=== PATIENT | female | born 1930 | race Caucasian/White ===

== ENCOUNTER 2017-05-11 15:37 | Emergency (ER) | payer OTHER, MEDICARE ==
[~2017-05-11] VITALS: Ht 144.8 cm; Wt 52.2 kg
[2017-05-11] MEDS ORDERED: DIPH-TET-PERTUS Vaccine 0.5 ML VIAL (ADACEL) I.M. ONE (17:45)
[2017-05-11] MEDS ORDERED: BACITRACIN 1 GM OINT TP ONE (17:45)
[2017-05-11 17:50] VITALS: BP_SYST 153
== END 2017-05-11 17:50 | disposition home or self-care (01) ==
LOC: SED 15:37
DX: S20.219A Contusion of unspecified front wall of thorax, initial encounter (principal); S60.511A Abrasion of right hand, initial encounter; E78.5 Hyperlipidemia, unspecified; Z91.018 Allergy to other foods; V47.5XXA Car driver injured in collision with fixed or stationary object in traffic accident, initial encounter; Y93.89 Activity, other specified; Y92.488 Other paved roadways as the place of occurrence of the external cause; Y99.8 Other external cause status
CPT/HCPCS: 71045; 90715; 93005; 99284

== ENCOUNTER 2018-12-06 08:40 | Inpatient (IN) | payer OTHER, MEDICARE ==
[~2018-12-06] VITALS: Ht 147.3 cm; Wt 48.5 kg
[2018-12-06 08:44] VITALS: BP_SYST 160
--- NOTE | 2018-12-06 08:52 | NUR ---
Placed in room 6 . Placed on awake overnight monitor, blood pressure machine and pulse oximeter. To gown for exam. Side rails up. Report received from paramedics.
--- NOTE | 2018-12-06 08:53 | NUR ---
pt arrived with BLS from home with c/o intermittent left hip and leg pain for one week. Pt reprots that she has pain upon rest as well. No other complaints at the moment.
--- NOTE | 2018-12-06 08:58 | NUR ---
ER at bedside examining patient.
[2018-12-06] MEDS ORDERED: KETOROLAC TROMETHAMINE 15 MG VIAL IVP ONE (09:00)
--- NOTE | 2018-12-06 09:10 | NUR ---
# 20 gauge angiocath placed to RAC. Use of asceptic technique. Opsite placed over site. Blood return noted. Blood for lab drawn from site. Flushed with 10 cc of normal saline. No evidence of infiltration noted. Patient tolerated well.
[2018-12-06 09:15] LABS: BASOPHILS % (AUTO) 0.6 % (0.0-2.0); EOSINOPHILS # (AUTO) 0.2 K/uL (0.0-0.4); EOSINOPHILS % (AUTO) 4.4 % (0.0-4.0); HEMATOCRIT 41.4 % (36-48); HEMOGLOBIN 14.2 g/dL (12.0-16.0); LYMPHOCYTES # (AUTO) 2.4 K/uL (1.0-5.5); LYMPHOCYTES % (AUTO) 45.4 % (20.5-51.5); MEAN CORPUSCULAR HEMOGLOBIN 32 pg (27-31); MEAN CORPUSCULAR HGB CONC 34 % (32-36); MEAN CORPUSCULAR VOLUME 93 fL (79.0-98.0); MONOCYTES # (AUTO) 0.5 K/uL (0.0-1.0); MONOCYTES % (AUTO) 8.9 % (1.7-9.3); NEUTROPHILS # (AUTO) 2.2 K/uL (1.8-7.7); NEUTROPHILS % (AUTO) 40.7 % (40.0-70.0); PLATELET COUNT (AUTO) 181 K/uL (130-430); RED BLOOD CELL COUNT(AUTO) 4.44 MIL/uL (4.2-6.2); RED CELL DISTRIBUTION WIDTH 13.2 % (9.0-15.0); WHITE BLOOD COUNT (AUTO) 5.3 K/uL (4.8-10.8)
--- NOTE | 2018-12-06 09:15 | NUR ---
medicated the pt with Toradol for left hip and leg pain. Will reassess.
[2018-12-06] MEDS ORDERED: fentaNYL CITRATE/PF 100 MCG/2 ML AMP IVP ONE (09:30)
--- NOTE | 2018-12-06 09:46 | NUR ---
medicated the pt with Fentanyl for 10/10 left hip and leg pain. Will reassess.
[2018-12-06 10:18] LABS: ANION GAP 5 (5-15); CALCIUM 9.3 mg/dL (8.4-11.0); CHLORIDE 103 mmol/L (98-107); CREATININE 0.78 mg/dL (0.55-1.30); GLUCOSE 108 mg/dL (70-99); POTASSIUM 3.6 mmol/L (3.5-5.1); SODIUM SERUM 137 mmol/L (136-145); UREA NITROGEN, BLOOD 13 mg/dL (8-21)
[2018-12-06 10:22] LABS: ALANINE AMINOTRANSFERASE 19 U/L (12-78); ALBUMIN 3.9 g/dL (3.4-4.8); ASPARTATE AMINOTRANSFERASE 28 U/L (10-37); TOTAL BILIRUBIN 0.5 mg/dL (0.0-1.0)
--- NOTE | 2018-12-06 10:55 | NUR ---
Pt does not recall the names of the medications that she takes. Daughter to bring in list of home medcations.
--- NOTE | 2018-12-06 11:33 | NUR ---
Pt will be admitted to [facility] room 105-A under the care of Dr. Schmidt. Currently waiting to give report.
--- NOTE | 2018-12-06 11:39 | NUR ---
report given to Blanquita MARIN.
[2018-12-06 11:58] VITALS: BP_SYST 150
--- NOTE | 2018-12-06 12:00 | NUR ---
NOTE Pt arrived to floor via gurney from ED. Pt was assisted to bed from [facility] with 2 3 person assist. Pt was in a lot of discomfort during transfer at 1140am. Once pt got into bed, left hip/leg pain diminished. Pt's son and daughter at bedside assisting with admission assessment. Pt has IV in right wrist 20g' at this time which is saline locked. No SOB/resp distress noted at this time. Pt and her family oriented to nursing routines and procedures. Questions/concerns were answered at this time. Call light within reach at this time.
[2018-12-06] MEDS ORDERED: fentaNYL CITRATE/PF 100 MCG/2 ML AMP IVP PRN (12:15)
[2018-12-06] MEDS ORDERED: ACETAMINOPHEN 325 MG TABLET PO PRN (12:15)
[2018-12-06] MEDS: fentaNYL CITRATE/PF 100 MCG/2 ML AMP IVP PRN ×3 (13:40→22:21)
--- NOTE | 2018-12-06 14:00 | NUR ---
NOTE Pt was given 50 mcg of Fentanyl IVP for MRI of lumbar spine at 1340. Pt could not lie flat on the table, was still in severe pain, pt came back to floor at 1400. Pt's son and daughter in law were at bedside. Pt resting in bed. No needs noted at this time. Call light within reach.
[2018-12-06] MEDS ORDERED: ROSU10TA PO (15:32)
[2018-12-06] MEDS ORDERED: LISI-209 PO (15:33)
[2018-12-06] MEDS ORDERED: ASA81 PO (15:33)
[2018-12-06 16:00] VITALS: BP_SYST 135
--- NOTE | 2018-12-06 17:50 | NUR ---
Note Pt sitting up in bed eating her dinner. Pt's son and daughter in law left bedside at 1600 and went home. Pt denies any SOB/resp distress or severe left hip/leg pain at this time. Pt was checked on q1' and PRN all shift for needs and care. Pt next to nurses' station for close observation all shift. Call light within reach.
--- NOTE | 2018-12-06 19:30 | NUR ---
Initial Notes Received handoff report from offgoing nurse at the bedside. Patient is AAOx4, resting comfortably in bedside. IV site intact, dressing clean and dry, saline locked. Bed is locked, in the lowest position, 2x side rails up, bed alarm is on. Call light is within reach. Encouraged patient to call for assistance. Will continue with plan of care.
[2018-12-06 20:00] VITALS: BP_SYST 141
--- NOTE | 2018-12-06 21:00 | NUR ---
Patient attempted to ambulate, got out of bed independently without assistance, but is unable to stand due to severe pain to the left hip. Assisted patient promptly back into bed. Educated patient to not attempt walking due to the severity of the left hip pain. Patient verbalized understanding. Provided patient with a bed steele and patient was able to void urine. Assisted with perineal care. Patient is now clean and dry, resting comfortably in bed. Bed is locked, in the lowest position, 2x side rails up, bed alarm is on. Call light is within reach. Encouraged patient to call for assistance.
--- NOTE | 2018-12-06 22:21 | NUR ---
Patient is complaining of left hip pain, 9/10, sharp. Provided Fentanyl 50mcg per MD order for severe pain, see eMAR for details. Will continue to monitor pain management.
--- NOTE | 2018-12-07 00:21 | NUR ---
Assisted patient to use the bedpan. Patient voided urine, and provided perineal care. Now clean and dry, resting comfortably in bed. Patient is complaining of left thigh and hip pain. Provided patient with some ice packs for the pain. Will continue to monitor for pain management.
[2018-12-07] MEDS: fentaNYL CITRATE/PF 100 MCG/2 ML AMP IVP PRN ×4 (02:26→11:57)
--- NOTE | 2018-12-07 02:26 | NUR ---
Patient is complaining of sharp 10/10 thigh pain. Provided Fentanyl PRN per MD order, see eMAR for details. Also applied new ice packs to the thigh. Will continue to monitor pain management.
[2018-12-07 02:41] VITALS: BP_SYST 142
--- NOTE | 2018-12-07 04:30 | NUR ---
Patient complaining of left thigh pain after using the bedpan. Provided patient with ice packs as needed. Will continue to monitor pain management.
--- NOTE | 2018-12-07 05:28 | NUR ---
Patient complaining of sharp pain on the left thigh 10/10. Provided patient with pain medication PRN per MD order, see eMAR for details.
--- NOTE | 2018-12-07 06:15 | NUR ---
Closing Notes Patient is resting comfortably in bed, AAOx4. No SOB, no acute distress, no complaints of pain at this time. IV site is intact, dressing clean and dry, saline locked. Bed is locked, in the lowest position, 2x side rails up, bed alarm is on. Call light is within reach. Fall and safety precautions maintained. All needs have been met during this shift. Will endorse care to oncoming dayshift nurse.
--- NOTE | 2018-12-07 07:25 | NUR ---
OPENING NOTE Patient resting in the bed. No acute distress. AAO x 4. Stated the pain is coming back after went to bathroom. Skin warm and dry to touch. SL intact to right wrist, no redness, no swelling, patent. Discussed the safety issue, use call light when needs help, and plan of care, verbally understanding. Safety measure maintained. Call light within reached. Bed locked in low position, side rails up, bed alarm on. Will continue to monitor.
[2018-12-07 07:50] VITALS: BP_SYST 152
--- NOTE | 2018-12-07 08:46 | NUR ---
FENTANYL GIVEN Patient c/o left hip pain 10/10, Fentanyl 50mcg IVP given as ordered. No acute distress. Safety measure maintained. Bed locked in low position, side rails up, bed alarm on. Continue to monitor.
--- NOTE | 2018-12-07 08:55 | NUR ---
Nutrition Update Joshua Scale 16 noted. Pt admitted for lumbar radiculopathy. Diet: 2 gm Na BMI: 22.4 kg/m2 RD to follow per nutrition care standards.
--- NOTE | 2018-12-07 10:32 | NUR ---
BEDPAN Bedpan provided for patient, void with yellow urine, no hematuria noted. Good pericare provided. Safety measure maintained. Call light within reached. Bed locked in low position, side rails up, bed alarm on. Continue to monitor.
--- NOTE | 2018-12-07 11:57 | NUR ---
FENTANYL GIVEN Patient c/o left hip pain 10/19, Fentanyl 50mcg IVP given as ordered. No acute distress. Safety measure maintained. Bed locked in low position, side rails up, bed alarm on. Continue to monitor.
[2018-12-07 12:00] VITALS: BP_SYST 138
--- NOTE | 2018-12-07 12:32 | NUR ---
OFF UNIT FOR MRI Patient off unit for MRI of spine via gurney. No acute distress. No c/o pain at this time.
--- NOTE | 2018-12-07 13:35 | NUR ---
BACK TO UNIT FROM MRI Patient back to unit after MRI of spine via gurney. No acute distress. No c/o pain at this time. Safety measure maintained. Call light within reached. Bed locked in low position, side rails up, bed alarm on. Continue to monitor.
--- NOTE | 2018-12-07 15:20 | NUR ---
RESTING Patient resting in the bed with eyes closed. No acute distress. Safety measure maintained. Call light within reached. Bed locked in low position, side rails up, bed alarm on. Continue to monitor.
[2018-12-07 17:08] VITALS: BP_SYST 121
--- NOTE | 2018-12-07 17:40 | NUR ---
SON VISITED Per son, August Lisa wanted to talk to Dr. Luong tomorrow. August will come in the [employer] if he cannot make it. Will let Dr. Luong call him . Will endorse to cnc milling machinist nurse.
--- NOTE | 2018-12-07 18:49 | NUR ---
CLOSING NOTE Patient resting in the bed. No acute distress. No c/o pain at this time. Skin warm and dry to touch. SL intact to right wrist, no redness, no swelling, patent. All needs met and attended. Safety measure maintained. Call light within reached. Bed locked in low position, side rails up, bed alarm on. Will endorse to night nurse.
--- NOTE | 2018-12-07 19:37 | NUR ---
ROUNDS PATIENT RESTING COMFORTABLY IN BED, NOT IN DISTRESS, VITALS STABLE. ASSESSMENT DONE AND DOCUMENTED. SEE FLOWSHEET. NEEDS ATTENDED TO. SAFETY AND FALL MEASURES IN PLACED. BED IN LOW AND LOCKED POSITION. BED ALARM ON. CALL LIGHT PLACED WITHIN REACH.
[2018-12-07 20:00] VITALS: BP_SYST 130
--- NOTE | 2018-12-07 21:13 | NUR ---
ROUNDS PATIENT RESTING COMFORTABLY AT THIS TIME, NO SIGNS OF ANY PAIN AND DISCOMFORT NOTED. WILL CONTINUE TO MONITOR.
--- NOTE | 2018-12-08 00:12 | NUR ---
PATIENT RESTING: Patient resting quietly. No acute distress noted. Vital signs within normal range.
[2018-12-08 02:05] VITALS: BP_SYST 129
--- NOTE | 2018-12-08 02:14 | NUR ---
ROUNDS PATIENT ASLEEP, RESPIRATIONS EVEN AND UNLABORED, WILL CONTINUE TO MONITOR.
--- NOTE | 2018-12-08 04:31 | NUR ---
SITTER: Sitter at bedside. Side rails up. Addendum: 12/08/18 at 0443 by Roxanna Roca RN WRONG ENTRY
--- NOTE | 2018-12-08 04:43 | NUR ---
PATIENT RESTING: Patient resting quietly. No acute distress noted. Vital signs within normal range.
--- NOTE | 2018-12-08 06:04 | NUR ---
CLOSING NOTES PATIENT STILL ASLEEP, NOT IN DISTRESS, RESPIRATIONS EVEN AND UNLABORED. NO PAIN AND DISCOMFORT NOTED. ALL NEEDS ATTENDED TO. SAFETY MEASURES MAINTAINED. CALL LIGHT PLACED WITHIN REACH.
--- NOTE | 2018-12-08 07:23 | NUR ---
OPENING NOTE Patient resting in the bed. No acute distress. AAO x 4. Denied of pain at this time. Skin warm and dry to touch. SL intact to right wrist, no redness, no swelling, patent. Discussed the safety issue, use call light when needs help, and plan of care, verbally understanding. Safety measure maintained. Call light within reached. Bed locked in low position, side rails up, bed alarm on. Will continue to monitor.
[2018-12-08 07:50] VITALS: BP_SYST 133
--- NOTE | 2018-12-08 09:20 | NUR ---
SEEN AND EXAMINED BY DEEPAK CARTER WITH ORDER RECEIVED.
--- NOTE | 2018-12-08 10:55 | NUR ---
OFF UNIT FOR CT PELVIS VIA WHEELCHAIR IN STABLE CONDITION.
--- NOTE | 2018-12-08 11:07 | NUR ---
BACK TO UNIT FROM CT PELVIS VIA WHEELCHAIR IN STABLE CONDITION.
[2018-12-08] MEDS: fentaNYL CITRATE/PF 100 MCG/2 ML AMP IVP PRN ×3 (11:09→22:10)
--- NOTE | 2018-12-08 11:09 | NUR ---
FENTANYL GIVEN Patient c/o left hip and thigh pain 7/10, Fentanyl 50mcg IVP given as ordered. No acute distress. Safety measure maintained. Bed locked in low position, side rails up, bed alarm on. Continue to monitor.
[2018-12-08 12:00] VITALS: BP_SYST 125
--- NOTE | 2018-12-08 13:30 | NUR ---
DC Planning: s/w patient and her son/MINH Koch at bedside about dcp to snf. CM presented snf of choice [facility], 2 [facility], 3 [facility] per son request snf in this area. CM suggested for son to tour the facility and let me know of his selection for the pt to transfer to. Addendum: 12/08/18 at 1511 by Aury Gabriel RN >> Called back from August, stated that he was at [facility] and toured the facility. He wanted pt transfer to [facility] upon discharge. the second choice is [facility], #3 would be [facility] ( too far form home).
--- NOTE | 2018-12-08 15:07 | NUR ---
Discharge Planning: [facility] faxed patient referral to [facility] (f [phone] p [phone]) DCP to follow up. Addendum: 12/08/18 at 1652 by Marleny Lopez DP Per Diana patient accepted to room 112, DCP made CM aware [facility] (f [phone] p [phone])
--- NOTE | 2018-12-08 15:22 | NUR ---
ROUND Patient resting in the bed and watching TV. No acute distress. Safety measure maintained. Call light within reached. Bed locked in low position, side rails up, bed alarm on. Continue to monitor.
[2018-12-08 16:18] VITALS: BP_SYST 155
--- NOTE | 2018-12-08 17:00 | NUR ---
SON VISITED AND STATED THAT WENT TO [facility] AND LIKES IT.
--- NOTE | 2018-12-08 18:18 | NUR ---
FENTANYL GIVEN Patient c/o left hip and thigh pain 8/10, Fentanyl 50mcg IVP given as ordered. No acute distress. Safety measure maintained. Bed locked in low position, side rails up, bed alarm on. Continue to monitor.
--- NOTE | 2018-12-08 18:58 | NUR ---
CLOSING NOTE Patient resting in the bed. No acute distress. Pain med given as needed. Skin warm and dry to touch. SL intact to right wrist, no redness, no swelling, patent. All needs met and attended. Safety measure maintained. Call light within reached. Bed locked in low position, side rails up, bed alarm on. Will endorse to night nurse.
--- NOTE | 2018-12-08 19:35 | NUR ---
ROUNDS PATIENT RESTING COMFORTABLY IN BED, NOT IN DISTRESS, VITALS STABLE. DENIES ANY PAIN AND DISCOMFORT AT THIS TIME. ASSESSMENT DONE AND DOCUMENTED. SEE FLOWSHEET. NEEDS ATTENDED TO. SAFETY AND FALL PRECAUTION MEASURES IN PLACED. BED IN LOW AND LOCKED POSITION. BED ALARM ON. CALL LIGHT PLACED WITHIN REACH.
--- NOTE | 2018-12-08 22:10 | NUR ---
PAIN PATIENT C/O PAIN AT THE BACK, 8/10 PAIN SCALE, PAIN MEDICATION GIVEN ORDERED. WILL CONTINUE TO MONITOR.
[2018-12-09] VITALS (7 sets, daily range): BP systolic 122–140
--- NOTE | 2018-12-09 00:14 | NUR ---
PATIENT RESTING: Patient resting quietly. No acute distress noted. Vital signs within normal range.
[2018-12-09] MEDS: fentaNYL CITRATE/PF 100 MCG/2 ML AMP IVP PRN ×3 (01:44→19:32)
--- NOTE | 2018-12-09 02:16 | NUR ---
ROUNDS PATIENT ASLEEP, VITALS STABLE, NO SIGNS OF ANY PAIN AND DISCOMFORT NOTED. WILL CONTINUE TO MONITOR.
--- NOTE | 2018-12-09 04:13 | NUR ---
PATIENT RESTING: Patient resting quietly. No acute distress noted. Vital signs within normal range.
--- NOTE | 2018-12-09 05:45 | NUR ---
CLOSING NOTES PATIENT AWAKE, VITALS STABLE, DENIES ANY PAIN AT THIS TIME. ALL NEEDS ATTENDED TO. SAFETY MEASURES MAINTAINED. CALL LIGHT PLACED WITHIN REACH.
--- NOTE | 2018-12-09 07:51 | NUR ---
am rounds: Awake, oriented. Pain is 5/10 on the left leg/hip. Was medicated at 0718. Call light within reach, safety precautions initiated. Encouraged to call for assist when needed.
[2018-12-09] MEDS ORDERED: POLYETHYLENE GLYCOL 3350, 17 GM/ POWD.PACK PO SCH (10:15)
--- NOTE | 2018-12-09 11:00 | NUR ---
Rounds: Patient ambulates to the bathroom with the front wheel walker independently.
--- NOTE | 2018-12-09 15:33 | NUR ---
Discharge Planning: [facility] (f [phone] p [phone]) Rm [id number], [facility] ([phone]) 6:00pm P/U charge nurse made aware, patient packet taken to nurse station.
--- NOTE | 2018-12-09 17:26 | NUR ---
REPORT: Report given to Ericka MARIN at [facility].
--- NOTE | 2018-12-09 20:30 | NUR ---
pt.transferred to [facility].destination confirmed review the pt's notes;case mgx;pt.medicated w/fentanyl:50mcq ivp p/t transfer.pt.had c/o pain.severe;intensity status.v/s assessed;values w/in normal limits.general status stable.respiratory status stable;unlabored.pt's belongings accounted for.
== END 2018-12-09 20:38 | DRG 552 ==
LOC: SED 08:40 → SMU 11:24
PROVIDERS: ADMIT Internal Medicine Hospice and Palliative Medicine; ATTEND Internal Medicine Hospice and Palliative Medicine
DX: M54.16 Radiculopathy, lumbar region (principal); E78.5 Hyperlipidemia, unspecified; I10 Essential (primary) hypertension; Z79.899 Other long term (current) drug therapy; Z91.018 Allergy to other foods
CPT/HCPCS: 36415; 71045; 72148; 72192-TC; 73502; 80053; 82550-TC; 85025; 93005; 96374; 96375; 97110-GP; 99285; J1885; J3010

== ENCOUNTER 2019-01-20 11:16 | Emergency (ER) | payer OTHER, MEDICARE ==
[~2019-01-20] VITALS: Ht 147.3 cm; Wt 47.2 kg
[~2019-01-20 11:16] MED LIST: ASA81 PO; LISI-209 PO; ROSU10TA2 PO
--- NOTE | 2019-01-20 11:45 | NUR ---
Patient to ER bed 4 to gown for evaluation. Side rails up.
--- NOTE | 2019-01-20 12:02 | NUR ---
ER Dr. Ogden at bedside examining patient.
--- NOTE | 2019-01-20 12:03 | NUR ---
Patient presented to ER S/P fall. Patient A&Ox4, bleeding controlled, arrived BLS, skin pink and warm, cap refill <3, speaking in full sentences. Patient [place] she miss stepped and fall backward hitting back of head on ground, Patient denies KO, pain 5/10, denies N/V/D, patient states she uses a walker at home and was not using a walker at time of fall.
--- NOTE | 2019-01-20 12:18 | NUR ---
Report to [place] MARIN
--- NOTE | 2019-01-20 13:47 | NUR ---
Patient given written and verbal discharge instructions and verbalizes understanding. ER MD discussed with patient the results and treatment provided. Patient in stable condition. ID arm band removed. IV catheter removed intact and dressing applied, no active bleeding. Rx of Naprosyn given. Patient educated on pain management and to follow up with PMD. Pain Scale 3/10. Opportunity for questions provided and answered. Medication side effect fact sheet provided.
== END 2019-01-20 13:47 | disposition home or self-care (01) ==
LOC: SED 11:16
DX: S00.03XA Contusion of scalp, initial encounter (principal); R03.0 Elevated blood-pressure reading, without diagnosis of hypertension; E78.5 Hyperlipidemia, unspecified; Z79.82 Long term (current) use of aspirin; Z79.899 Other long term (current) drug therapy; Z91.018 Allergy to other foods; W01.0XXA Fall on same level from slipping, tripping and stumbling without subsequent striking against object, initial encounter; Y93.89 Activity, other specified; Y92.89 Other specified places as the place of occurrence of the external cause; Y99.8 Other external cause status
CPT/HCPCS: 70450-TC; 99284